=== PATIENT | male | born 1985 | race Two or more races ===

== ENCOUNTER 2019-07-07 14:32 | Emergency (ER) | payer MEDICAID ==
[~2019-07-07] VITALS: Ht 167.6 cm; Wt 70.5 kg
[~2019-07-07 14:32] MED LIST: RANI-648 PO
[2019-07-07] MEDS ORDERED: LIDOcaine 1% W/epiNEPHrine 1:200,000 10ml vial IJ ONE (14:40)
[2019-07-07] MEDS ORDERED: AMOX-580 PO (15:13)
[2019-07-07] MEDS ORDERED: CefTRIAXone 1000mg IM Kit (w/lidocaine diluent) IM ONE (15:15)
[2019-07-07 15:35] VITALS: BP 155/96
== END 2019-07-07 15:38 ==
LOC: ER 14:33 → EEVIPCON 14:33 → ER 15:38
DX: S01.81XA Laceration without foreign body of other part of head, initial encounter (principal); S51.832A Puncture wound without foreign body of left forearm, initial encounter; S21.239A Puncture wound without foreign body of unspecified back wall of thorax without penetration into thoracic cavity, initial encounter; S30.811A Abrasion of abdominal wall, initial encounter; F15.90 Other stimulant use, unspecified, uncomplicated; F11.90 Opioid use, unspecified, uncomplicated; Z79.899 Other long term (current) drug therapy; W54.0XXA Bitten by dog, initial encounter; Y93.89 Activity, other specified; Y92.89 Other specified places as the place of occurrence of the external cause; Y99.8 Other external cause status
CPT/HCPCS: 73090; 96372; 96374; 99284; J0696

== ENCOUNTER 2019-07-09 05:25 | Emergency (ER) | payer MEDICAID ==
[~2019-07-09] VITALS: Ht 167.6 cm; Wt 62.8 kg
[~2019-07-09 05:25] MED LIST changes: +AMOX-580 PO
[2019-07-09 05:33] VITALS: BP 131/88
[2019-07-09] MEDS ORDERED: ibuprofen 200mg tablet PO ONE (06:30)
[2019-07-09] MEDS ORDERED: IBUP-1985 PO (06:30)
== END 2019-07-09 07:01 | disposition home or self-care (01) ==
LOC: ER 05:25
DX: S01.81XD Laceration without foreign body of other part of head, subsequent encounter (principal); S51.832D Puncture wound without foreign body of left forearm, subsequent encounter; W54.0XXD Bitten by dog, subsequent encounter
CPT/HCPCS: 99282

== ENCOUNTER 2019-12-09 13:09 | Emergency (ER) | payer MEDICAID ==
[~2019-12-09] VITALS: Ht 165.1 cm; Wt 65.9 kg
[~2019-12-09 13:09] MED LIST changes: -AMOX-580 PO; +IBUP-1985 PO
[2019-12-09 13:17] VITALS: BP 132/82
[2019-12-09] MEDS ORDERED: ibuprofen tablet 400 MG TABLET PO ONE (15:30)
[2019-12-09] MEDS ORDERED: HYDR-4383 PO (16:25)
[2019-12-09] MEDS ORDERED: ONDA4TAB6 PO (16:25)
== END 2019-12-09 16:51 | disposition home or self-care (01) ==
LOC: ER 13:09
DX: S02.40EA Zygomatic fracture, right side, initial encounter for closed fracture (principal); H02.843 Edema of right eye, unspecified eyelid; R51 Headache; F15.90 Other stimulant use, unspecified, uncomplicated; F11.90 Opioid use, unspecified, uncomplicated; Z59.0 Homelessness; Z79.899 Other long term (current) drug therapy; X58.XXXA Exposure to other specified factors, initial encounter; Y93.89 Activity, other specified; Y92.89 Other specified places as the place of occurrence of the external cause; Y99.8 Other external cause status; Y09 Assault by unspecified means
CPT/HCPCS: 70450; 70486; 99285

== ENCOUNTER 2019-12-17 17:01 | Emergency (ER) | payer MEDICAID ==
[~2019-12-17 17:01] MED LIST changes: +HYDR-4383 PO; +ONDA4TAB6 PO
[2019-12-17] MEDS ORDERED: HYDR-4383 PO (17:05)
[2019-12-17] MEDS ORDERED: ONDA4TAB6 PO (17:05)
== END 2019-12-17 17:17 | disposition home or self-care (01) ==
LOC: ER 17:01
DX: S02.40ED Zygomatic fracture, right side, subsequent encounter for fracture with routine healing (principal); F15.90 Other stimulant use, unspecified, uncomplicated; F11.90 Opioid use, unspecified, uncomplicated; Z59.0 Homelessness; Z79.899 Other long term (current) drug therapy; Y35.811D Legal intervention involving manhandling, law enforcement official injured, subsequent encounter
CPT/HCPCS: 99281; 99283

== ENCOUNTER 2021-05-03 22:58 | Emergency (ER) | payer MEDICAID ==
[~2021-05-03] VITALS: Ht 167.6 cm; Wt 72.7 kg
[2021-05-03 23:14] VITALS: BP 132/93
[2021-05-03] MEDS ORDERED: ondansetron 4mg rapidly disintigrating tab PO ONE (23:35)
[2021-05-03] MEDS ORDERED: ONDA4TAB6 PO (23:36)
== END 2021-05-03 23:48 | disposition home or self-care (01) ==
LOC: ER 22:59
DX: B34.9 Viral infection, unspecified (principal); Z20.822 Contact with and (suspected) exposure to COVID-19; F17.210 Nicotine dependence, cigarettes, uncomplicated; F15.10 Other stimulant abuse, uncomplicated; F12.10 Cannabis abuse, uncomplicated; Z59.00 Homelessness unspecified; Z79.899 Other long term (current) drug therapy
CPT/HCPCS: 87635; 99283; C9803